=== PATIENT | male | born 1930 | race Caucasian/White ===

== ENCOUNTER 2019-01-04 09:56 | Emergency (ER) | payer OTHER ==
[2019-01-04 10:24] VITALS: BP 130/60; PULSE 68; TEMP 97.4; BMI 22.7
[2019-01-04 10:31] LABS: URINE APPEARANCE CLEAR; URINE BILIRUBIN NEGATIVE (<2.0 mg/dL); URINE COLOR COLORLESS; URINE GLUCOSE (UA) NEGATIVE (NEGATIVE); URINE KETONE NEGATIVE (NEGATIVE); URINE LEUK ESTERASE NEGATIVE (NEGATIVE); URINE NITRITE NEGATIVE (NEGATIVE); URINE PROTEIN NEGATIVE (NEGATIVE); URINE UROBILINOGEN NEGATIVE mg/dL (0.2-1.0)
--- NOTE | 2019-01-04 10:42 | PDOC ---
History of Present Illness - General Chief Complaint: Pain Stated Complaint: WEAKNESS, BACK PAIN Time Seen by Provider: 01/04/19 10:16 Past History - Past Medical History Allergies/Adverse Reactions: Allergies Allergy/AdvReac Type Severity Reaction Status Date / Time No Known Allergies Allergy Verified 01/04/19 10:17 Home Medications: Ambulatory Orders Amlodipine Besylate [Norvasc -] 10 mg PO DAILY 01/04/19 Carvedilol [Coreg -] 12.5 mg PO BID 01/04/19 Furosemide [Lasix] 40 mg PO DAILY 01/04/19 Lisinopril [Zestril] 40 mg PO BID 01/04/19 Metformin HCl 500 mg PO BID 01/04/19 Simvastatin [Zocor -] 20 mg PO HS 01/04/19 Terazosin HCl [Hytrin] 10 mg PO DAILY 01/04/19 COPD: No Diabetes: Yes HTN: Yes Hypercholesterolemia: Yes - Suicide/Smoking/Psychosocial Hx Smoking History: Unknown if ever smoked *Physical Exam - Vital Signs Last Vital Signs Temp Pulse Resp BP Pulse Ox 97.4 F L 68 18 130/60 01/04/19 10:11 01/04/19 10:11 01/04/19 10:11 01/04/19 10:11 Moderate Sedation - Procedure Monitoring Vital Signs: Procedure Monitoring Vital Signs Temperature 97.4 F L 01/04/19 10:11 Pulse Rate 68 01/04/19 10:11 Respiratory Rate 18 01/04/19 10:11 Blood Pressure 130/60 01/04/19 10:11 O2 Sat by Pulse Oximetry (%) ED Treatment Course - ADDITIONAL ORDERS Additional order review: Laboratory Results 01/04/19 10:15 Urine Color Colorless Urine Appearance Clear Urine pH 7.0 Ur Specific [place] 1.003 L Urine Protein Negative Urine Glucose (UA) Negative Urine Ketones Negative Urine Blood Negative Urine Nitrite Negative Urine Bilirubin Negative Urine Urobilinogen Negative Ur Leukocyte Esterase Negative *DC/Admit/Observation/Transfer 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 The xrays did not show any fractures or dislocations, but does show arthritis in your elbow. This is likely part of your pain. You should rest the extremity. Continue taking over the counter Tylenol as needed for pain. You can also try using cold and hot packs. I have referred you to an orthopedist, Dr. Anthony for further evaluation. You will need to call to make an appointment. The number is included in this packet. You can also follow up with your primary care doctor. Go to the nearest emergency department if your condition worsens or you feel like you need additional emergency evaluation. Print Language: [id number] - Post Discharge Activity
--- NOTE | 2019-01-04 11:14 | PDOC ---
Attending Attestation - Resident Resident Name: Jarred Acevedo - ED Attending Attestation I have performed the following: I have examined & evaluated the patient, The case was reviewed & discussed with the resident, I agree w/resident's findings & plan - HPI HPI: 01/04/19 13:58 The patient is a 88 year old male with a significant past medical history of hypertension, hyperlipidemia, and diabetes, who presents to the emergency department with right shoulder and elbow pain, worse with movement and associated with some tingling/numbness to pinky side x 4-5 days. endorses heavy lifting of stuff he should not be doing such as heavy bed.no falls or trauma. no weakness. no skin changes no f/c or infectious sx. - Physicial Exam PE: 01/04/19 13:59 General: NAD, well appearing Vascular: 2+ DP pulses symmetric and equal. Back: no midline tenderness, no stepoffs, FROM Focused MSK/Neuro Exam notable for soft compartments, shoulder abduction/ adduction/flexion/extension and prox strength 5/5 actively against resistance. 5 /5 shoulder shrug strength. deltoid sensation intact; sensation grossly intact in median/radial/ulnar distribution. 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 2+ radialis pulses bilaterally and symmetric. no tenderness to right shoulder, ROM in right elbow intact, no palp swelling or crepitus or warmth/skin changes Skin: color normal color, warm and well perfused. 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 given analgesia here, much improved. ROM remains intact, NVI results d/w pt and family. stable for DC with PCP and ortho followup, pain control otc, preferably tylenol. no c/i to nsaids, can be used as needed for exacerbation of arthritis. ROM exercises encouraged.
[2019-01-04] MEDS ORDERED: ACETAMINOPHEN 1000 MG/100 ML VIAL (NON FORMULARY) IVPB ONE (11:16)
[2019-01-04] MEDS ORDERED: KETOROLAC TROMETHAMINE 30 MG/1 ML VIAL IM ONE (11:17)
[2019-01-04] MEDS ORDERED: ACETAMINOPHEN INJECTION 100 ML IVPB ONE (11:23)
[2019-01-04] MEDS ORDERED: KETOROLAC TROMETHAMINE 30 MG/1 ML VIAL ONE (11:24)
== END 2019-01-04 13:29 | disposition home or self-care (01) ==
LOC: JER 09:56
PROC: 3E0233Z Introduction of Anti-inflammatory into Muscle, Percutaneous Approach (ICD-10-PCS; principal; 2019-01-04)
PROC: 3E033NZ Introduction of Analgesics, Hypnotics, Sedatives into Peripheral Vein, Percutaneous Approach (ICD-10-PCS; 2019-01-04)
DX: M13.821 Other specified arthritis, right elbow (principal); I10 Essential (primary) hypertension; E78.00 Pure hypercholesterolemia, unspecified; E11.9 Type 2 diabetes mellitus without complications; Z79.84 Long term (current) use of oral hypoglycemic drugs
CPT/HCPCS: 73030-TC-RT-FY; 73070-TC-RT-FY; 81003; 82962; 99282-25; J0131

== ENCOUNTER 2020-11-27 13:48 | Inpatient (IN) | payer OTHER ==
[2020-11-27 14:41] VITALS: BMI 19.9
[2020-11-27] MEDS ORDERED: ACETAMINOPHEN 1000 MG/100 ML VIAL (NON FORMULARY) IVPB ONE (15:39)
[2020-11-27 15:43] LABS: BASO % 0.2 % (0-2.0); EOS % 0.5 % (0-4.5); HEMATOCRIT 37.3 % (35.4-49); HEMOGLOBIN 12.5 GM/dL (11.7-16.9); MCH 28.9 pg (25.7-33.7); MCHC 33.3 g/dl (32.0-35.9); MEAN CELL VOLUME 86.6 fl (80-96); MEAN PLT VOLUME 7.9 fl (7.5-11.1); MONO % 8.5 % (3.8-10.2); NEUT % 84.8 % (42.8-82.8); PLATELET COUNT 247 K/MM3 (134-434); RBC 4.31 M/mm3 (4.00-5.60); RDW 14.4 % (11.9-15.9); WHITE BLOOD COUNT 8.3 K/mm3 (4.0-10.0)
[2020-11-27] MEDS ORDERED: morphine CARPU-JECT 2 MG/1 ML DISP.SYRIN IVPUSH ONE (15:54)
[2020-11-27 16:01] LABS: CHLORIDE 102 mmol/L (98-107); POTASSIUM 3.9 mmol/L (3.5-5.1); SODIUM 141 mmol/L (136-145)
[2020-11-27 16:03] LABS: CALCIUM 8.5 mg/dL (8.5-10.1)
[2020-11-27 16:04] LABS: ALBUMIN 3.2 g/dl (3.4-5.0); ANION GAP 8 MMOL/L (8-16); BLOOD UREA NITROGEN 17.4 mg/dL (7-18); CO2 32 mmol/L (21-32); GLUCOSE,RANDOM 168 mg/dL (74-106)
[2020-11-27 16:07] LABS: CREATININE 0.9 mg/dL (0.55-1.3); SGOT/AST 40 U/L (15-37); SGPT/ALT 90 U/L (13-61)
[2020-11-27 16:08] LABS: BILIRUBIN,TOTAL 1.3 mg/dL (0.2-1)
[2020-11-27 16:09] LABS: TOT PROT 6.5 g/dl (6.4-8.2)
[2020-11-27 16:10] LABS: ALK PHOS 190 U/L (45-117)
[2020-11-27] MEDS ORDERED: MORPHINE SULFATE 2 MG/ML VIAL ONE (16:43)
[2020-11-27] MEDS ORDERED: ACETAMINOPHEN INJECTION 100 ML IVPB ONE (16:43)
[2020-11-27 21:20] LABS: INR 1.56 (0.83-1.09); PROTHROMBIN TIME (PATIENT) 18.6 SEC (9.7-13.0)
[2020-11-27 21:22] LABS: ACTIVATED PTT 45.3 SECONDS (25.2-36.5)
[2020-11-27] MEDS ORDERED: morphine SULFATE 4 MG/ML VIAL IVPUSH PRN (23:52)
[2020-11-27] MEDS ORDERED: MORPHINE SULFATE 2 MG/ML VIAL IVPUSH PRN (23:52)
[2020-11-28] MEDS: INSULIN SLIDING SCALE (NOVOLOG) 1 VIAL SQ SCH ×3 (06:38→17:13)
[2020-11-28 07:19] LABS: BASO % 0.4 % (0-2.0); EOS % 0.8 % (0-4.5); HEMATOCRIT 36.8 % (35.4-49); HEMOGLOBIN 12.4 GM/dL (11.7-16.9); MCH 29.1 pg (25.7-33.7); MCHC 33.7 g/dl (32.0-35.9); MEAN CELL VOLUME 86.2 fl (80-96); MEAN PLT VOLUME 7.9 fl (7.5-11.1); MONO % 6.1 % (3.8-10.2); NEUT % 86.7 % (42.8-82.8); PLATELET COUNT 239 K/MM3 (134-434); RBC 4.27 M/mm3 (4.00-5.60); RDW 14.2 % (11.9-15.9); WHITE BLOOD COUNT 8.6 K/mm3 (4.0-10.0)
[2020-11-28 07:28] LABS: INR 1.51 (0.83-1.09)
[2020-11-28 07:43] LABS: POTASSIUM 3.5 mmol/L (3.5-5.1)
[2020-11-28 07:49] LABS: CALCIUM 8.1 mg/dL (8.5-10.1)
[2020-11-28 07:50] LABS: BLOOD UREA NITROGEN 17.3 mg/dL (7-18); MAGNESIUM 1.7 mg/dL (1.8-2.4)
[2020-11-28 07:53] LABS: CREATININE 0.8 mg/dL (0.55-1.3); PHOSPHOROUS 3.4 mg/dL (2.5-4.9)
[2020-11-28 07:54] LABS: BILIRUBIN,TOTAL 1.5 mg/dL (0.2-1)
[2020-11-28 07:55] LABS: TOT PROT 6.1 g/dl (6.4-8.2)
[2020-11-28] MEDS ORDERED: ENOXAPARIN NA (PORCINE) 40 MG/0.4 ML DISP.SYRIN SQ SCH (10:00)
[2020-11-28] MEDS ORDERED: PATIENT'S OWN MEDICATION (NON-FORMULARY) (Lisinopril [Zestril] 40 MG Tablet) PO SCH (10:00)
[2020-11-28] MEDS ORDERED: CARVEDILOL 12.5 MG TABLET (FP) ONE (10:26)
[2020-11-28] MEDS: CARVEDILOL 12.5 MG TABLET (FP) PO SCH ×2 (10:26→23:02)
[2020-11-28] MEDS ORDERED: DEXMEDETOMIDINE HCL 200 MCG/2 ML IVPB ONE (16:45)
[2020-11-28] MEDS ORDERED: ceFAZolin SODIUM 1 GM VIAL ONE (16:52)
[2020-11-28] MEDS ORDERED: PROPOFOL 20 ML ONE (16:52)
[2020-11-28] MEDS ORDERED: SUCCINYLCHOLINE CHLORIDE 200 MG/10 ML SYRINGE ONE (16:56)
[2020-11-28] MEDS ORDERED: EPHEDRINE SULFATE/0.9% NACL/PF 50 MG/10 ML SYRINGE NR ONE (16:56)
[2020-11-28] MEDS ORDERED: ROCURONIUM BROMIDE 100 MG/10 ML VIAL ONE ×2 (16:57→20:04)
[2020-11-28] MEDS ORDERED: MIDAZOLAM HCL 2 MG/2 ML SINGLE DOSE VIAL ONE (16:58)
[2020-11-28] MEDS ORDERED: ceFAZolin SODIUM 1 GM VIAL IVPB ONE (19:20)
[2020-11-28] MEDS ORDERED: KETAMINE HCL 200 MG/20 ML VIAL ONE (19:34)
[2020-11-28] MEDS ORDERED: HYDROmorphone HCl 2 MG/ML VIAL ONE (19:34)
[2020-11-28] MEDS ORDERED: NEOSTIGMINE METHYLSULFATE 0.5 MG/ML - 10 ML MDV ONE (20:17)
[2020-11-28] MEDS ORDERED: GLYCOPYRROLATE 0.2 MG/1 ML VIAL ONE (20:17)
[2020-11-28] MEDS ORDERED: VANCOMYCIN 1,000 MG VIAL (RESTRICTED TO ID ONLY) ONE (20:28)
[2020-11-28] MEDS ORDERED: LACTATED RINGERS SOLUTION 1,000 ML IV SCH (21:30)
[2020-11-28] MEDS ORDERED: ONDANSETRON 4 MG/2 ML VIAL IVPUSH PRN (21:33)
[2020-11-28 22:18] LABS: BASO % 0.1 % (0-2.0); EOS % 0.5 % (0-4.5); HEMATOCRIT 34.3 % (35.4-49); HEMOGLOBIN 11.5 GM/dL (11.7-16.9); LYMPH % 4.6 % (8-40); MCH 28.9 pg (25.7-33.7); MCHC 33.6 g/dl (32.0-35.9); MEAN PLT VOLUME 7.9 fl (7.5-11.1); MONO % 4.1 % (3.8-10.2); NEUT % 90.7 % (42.8-82.8); PLATELET COUNT 246 K/MM3 (134-434); RBC 3.99 M/mm3 (4.00-5.60); RDW 14.2 % (11.9-15.9); WHITE BLOOD COUNT 8.8 K/mm3 (4.0-10.0)
[2020-11-28] MEDS: TERAZOSIN HCL 5 MG CAPSULE PO SCH (23:02)
[2020-11-28] MEDS: ATORVASTATIN CA 10 MG TABLET (FP) PO SCH (23:02)
[2020-11-29] MEDS: CEFAZOLIN 2 GM/D5W 2 GM/50 ML ML IVPB SCH ×3 (02:02→17:18)
[2020-11-29] MEDS ORDERED: LACTATED RINGERS SOLUTION 1,000 ML IV SCH (06:01)
[2020-11-29] MEDS: INSULIN SLIDING SCALE (NOVOLOG) 1 VIAL SQ SCH ×3 (06:49→16:54)
[2020-11-29 09:28] LABS: POTASSIUM 4.1 mmol/L (3.5-5.1)
[2020-11-29 09:30] LABS: BASO % 0.1 % (0-2.0); EOS % 0.1 % (0-4.5); HEMATOCRIT 34.3 % (35.4-49); HEMOGLOBIN 11.5 GM/dL (11.7-16.9); MCHC 33.6 g/dl (32.0-35.9); MEAN CELL VOLUME 86.3 fl (80-96); MEAN PLT VOLUME 8.1 fl (7.5-11.1); MONO % 6.8 % (3.8-10.2); PLATELET COUNT 254 K/MM3 (134-434); RBC 3.98 M/mm3 (4.00-5.60); WHITE BLOOD COUNT 9.4 K/mm3 (4.0-10.0)
[2020-11-29 09:34] LABS: ALBUMIN 2.5 g/dl (3.4-5.0); CALCIUM 8.2 mg/dL (8.5-10.1)
[2020-11-29 09:38] LABS: BILIRUBIN,TOTAL 0.9 mg/dL (0.2-1); TOT PROT 5.4 g/dl (6.4-8.2)
[2020-11-29] MEDS: MULTIVITAMINS (DAILY MVI) TABLET (FP) PO SCH (09:46)
[2020-11-29] MEDS: ENOXAPARIN NA (PORCINE) 40 MG/0.4 ML DISP.SYRIN SQ SCH (09:46)
[2020-11-29] MEDS: CARVEDILOL 12.5 MG TABLET (FP) PO SCH ×2 (09:46→22:06)
[2020-11-29] MEDS ORDERED: INSULIN (NOVOLOG) ASPART 100 UNITS/ML 10ML VIAL ONE (11:33)
[2020-11-29] MEDS ORDERED: TAMSULOSIN HCL 0.4 MG CAP PO ONE ×2 (12:20→17:30)
[2020-11-29] MEDS ORDERED: PT OWN MED DRAWER 7, Y5N ONE (21:57)
[2020-11-29] MEDS: ATORVASTATIN CA 10 MG TABLET (FP) PO SCH (22:06)
[2020-11-29] MEDS: TERAZOSIN HCL 5 MG CAPSULE PO SCH (22:06)
[2020-11-30] MEDS ORDERED: MELATONIN 5 MG TABLETS PO ONE (00:28)
[2020-11-30] MEDS: INSULIN SLIDING SCALE (NOVOLOG) 1 VIAL SQ SCH ×3 (06:44→16:40)
[2020-11-30 08:41] LABS: HEMATOCRIT 30.6 % (35.4-49); HEMOGLOBIN 10.2 GM/dL (11.7-16.9); MCH 28.8 pg (25.7-33.7); MCHC 33.4 g/dl (32.0-35.9); MEAN CELL VOLUME 86.2 fl (80-96); MEAN PLT VOLUME 8.3 fl (7.5-11.1); PLATELET COUNT 235 K/MM3 (134-434); RBC 3.56 M/mm3 (4.00-5.60); RDW 14.4 % (11.9-15.9); WHITE BLOOD COUNT 7.6 K/mm3 (4.0-10.0)
[2020-11-30 09:01] LABS: POTASSIUM 3.7 mmol/L (3.5-5.1)
[2020-11-30 09:05] LABS: CALCIUM 7.9 mg/dL (8.5-10.1)
[2020-11-30 09:06] LABS: BLOOD UREA NITROGEN 32.3 mg/dL (7-18)
[2020-11-30 09:09] LABS: CREATININE 1.1 mg/dL (0.55-1.3)
[2020-11-30] MEDS: ENOXAPARIN NA (PORCINE) 40 MG/0.4 ML DISP.SYRIN SQ SCH (09:40)
[2020-11-30] MEDS: MULTIVITAMINS (DAILY MVI) TABLET (FP) PO SCH (09:40)
[2020-11-30] MEDS: CARVEDILOL 12.5 MG TABLET (FP) PO SCH ×2 (09:40→22:15)
[2020-11-30] MEDS ORDERED: INSULIN (NOVOLOG) ASPART 100 UNITS/ML 10ML VIAL ONE (11:56)
[2020-11-30] MEDS ORDERED: PT OWN MED DRAWER 7, Y5N ONE (22:14)
[2020-11-30] MEDS: TERAZOSIN HCL 5 MG CAPSULE PO SCH (22:15)
[2020-11-30] MEDS: ATORVASTATIN CA 10 MG TABLET (FP) PO SCH (22:15)
[2020-12-01] MEDS ORDERED: INSULIN (NOVOLOG) ASPART 100 UNITS/ML 10ML VIAL ONE (07:03)
[2020-12-01] MEDS: INSULIN SLIDING SCALE (NOVOLOG) 1 VIAL SQ SCH ×3 (07:15→19:42)
[2020-12-01 09:19] LABS: HEMATOCRIT 29.9 % (35.4-49); HEMOGLOBIN 10.1 GM/dL (11.7-16.9); MCH 29.2 pg (25.7-33.7); MCHC 33.8 g/dl (32.0-35.9); MEAN CELL VOLUME 86.4 fl (80-96); MEAN PLT VOLUME 8.1 fl (7.5-11.1); PLATELET COUNT 223 K/MM3 (134-434); RBC 3.46 M/mm3 (4.00-5.60); RDW 14.3 % (11.9-15.9); WHITE BLOOD COUNT 6.1 K/mm3 (4.0-10.0)
[2020-12-01 09:45] LABS: POTASSIUM 3.9 mmol/L (3.5-5.1)
[2020-12-01 10:03] LABS: CALCIUM 7.7 mg/dL (8.5-10.1)
[2020-12-01 10:04] LABS: BLOOD UREA NITROGEN 24.1 mg/dL (7-18)
[2020-12-01 10:07] LABS: CREATININE 0.8 mg/dL (0.55-1.3)
[2020-12-01] MEDS ORDERED: PT OWN MED DRAWER 7, Y5N ONE ×2 (11:13→22:13)
[2020-12-01] MEDS: DOCUSATE SODIUM 100 MG CAPSULE (FP) PO ONE (11:25)
[2020-12-01] MEDS: POLYETHYLENE GLYCOL 3350 119 GM BTL PO ONE (11:25)
[2020-12-01] MEDS: CARVEDILOL 12.5 MG TABLET (FP) PO SCH ×3 (11:26→22:15)
[2020-12-01] MEDS: ENOXAPARIN NA (PORCINE) 40 MG/0.4 ML DISP.SYRIN SQ SCH ×3 (11:26→16:01)
[2020-12-01] MEDS: MULTIVITAMINS (DAILY MVI) TABLET (FP) PO SCH ×2 (11:27→12:38)
[2020-12-01 20:52] LABS: EPI CELLS 17 /uL (0-25.1); HYALINE CASTS 31 /uL (0-3.1); PH,URINE 5.5 (5.0-8.0); URINE APPEARANCE TURBID; URINE BILIRUBIN NEGATIVE (NEGATIVE); URINE COLOR DK YELLOW; URINE GLUCOSE (UA) NEGATIVE (NEGATIVE); URINE KETONE NEGATIVE (NEGATIVE); URINE LEUK ESTERASE 2+ (NEGATIVE); URINE NITRITE POSITIVE (NEGATIVE); URINE PROTEIN 1+ (NEGATIVE); URINE RBC 58 /uL (0-23.9); URINE WBC 8 /uL (0-25.8)
[2020-12-01] MEDS: ATORVASTATIN CA 10 MG TABLET (FP) PO SCH (22:15)
[2020-12-01] MEDS: TERAZOSIN HCL 5 MG CAPSULE PO SCH (22:16)
[2020-12-01 22:23] LABS: URINE BACTERIA 170.1 /uL (0-1359)
[2020-12-02] MEDS: INSULIN SLIDING SCALE (NOVOLOG) 1 VIAL SQ SCH ×3 (06:35→17:05)
[2020-12-02 09:12] LABS: HEMATOCRIT 31.3 % (35.4-49); HEMOGLOBIN 10.6 GM/dL (11.7-16.9); MCH 29.3 pg (25.7-33.7); MCHC 33.8 g/dl (32.0-35.9); MEAN CELL VOLUME 86.6 fl (80-96); MEAN PLT VOLUME 8.2 fl (7.5-11.1); PLATELET COUNT 237 K/MM3 (134-434); RBC 3.62 M/mm3 (4.00-5.60); RDW 14.2 % (11.9-15.9); WHITE BLOOD COUNT 6.3 K/mm3 (4.0-10.0)
[2020-12-02] MEDS: ENOXAPARIN NA (PORCINE) 40 MG/0.4 ML DISP.SYRIN SQ SCH (09:37)
[2020-12-02] MEDS: MULTIVITAMINS (DAILY MVI) TABLET (FP) PO SCH (09:37)
[2020-12-02] MEDS: CARVEDILOL 12.5 MG TABLET (FP) PO SCH ×2 (09:37→22:34)
[2020-12-02 10:07] LABS: CALCIUM 8.2 mg/dL (8.5-10.1)
[2020-12-02 10:08] LABS: BLOOD UREA NITROGEN 19.6 mg/dL (7-18); MAGNESIUM 2.3 mg/dL (1.8-2.4)
[2020-12-02 10:11] LABS: CREATININE 0.7 mg/dL (0.55-1.3); PHOSPHOROUS 2.9 mg/dL (2.5-4.9)
[2020-12-02] MEDS: ACETAMINOPHEN 325 MG TABLET (FP) PO PRN ×2 (15:20→22:51)
[2020-12-02] MEDS: POLYETHYLENE GLYCOL 3350 119 GM BTL PO ONE (20:00)
[2020-12-02] MEDS: DOCUSATE SODIUM 100 MG CAPSULE (FP) PO ONE (20:00)
[2020-12-02] MEDS: TERAZOSIN HCL 5 MG CAPSULE PO SCH (22:51)
[2020-12-02] MEDS: ATORVASTATIN CA 10 MG TABLET (FP) PO SCH (22:51)
[2020-12-03] MEDS: INSULIN SLIDING SCALE (NOVOLOG) 1 VIAL SQ SCH ×3 (07:10→17:09)
[2020-12-03 08:42] LABS: HEMATOCRIT 32.8 % (35.4-49); HEMOGLOBIN 10.9 GM/dL (11.7-16.9); MCH 29.3 pg (25.7-33.7); MCHC 33.4 g/dl (32.0-35.9); MEAN CELL VOLUME 87.9 fl (80-96); MEAN PLT VOLUME 8.1 fl (7.5-11.1); PLATELET COUNT 258 K/MM3 (134-434); RBC 3.74 M/mm3 (4.00-5.60); RDW 14.1 % (11.9-15.9); WHITE BLOOD COUNT 6.1 K/mm3 (4.0-10.0)
[2020-12-03 09:07] LABS: POTASSIUM 3.9 mmol/L (3.5-5.1)
[2020-12-03 09:09] LABS: BLOOD UREA NITROGEN 18.7 mg/dL (7-18); MAGNESIUM 2.4 mg/dL (1.8-2.4)
[2020-12-03 09:12] LABS: CREATININE 0.7 mg/dL (0.55-1.3)
[2020-12-03] MEDS: CARVEDILOL 12.5 MG TABLET (FP) PO SCH ×2 (09:15→21:51)
[2020-12-03] MEDS: MULTIVITAMINS (DAILY MVI) TABLET (FP) PO SCH (09:15)
[2020-12-03] MEDS: ENOXAPARIN NA (PORCINE) 40 MG/0.4 ML DISP.SYRIN SQ SCH (09:15)
[2020-12-03] MEDS: CEFTRIAXONE 1 GM in DEXTROSE 5%-WATER - 50 ML IVPB SCH (17:17)
[2020-12-03] MEDS: ATORVASTATIN CA 10 MG TABLET (FP) PO SCH (21:51)
[2020-12-03] MEDS: TERAZOSIN HCL 5 MG CAPSULE PO SCH (21:51)
[2020-12-04] MEDS: INSULIN SLIDING SCALE (NOVOLOG) 1 VIAL SQ SCH ×3 (06:01→17:24)
[2020-12-04 07:49] LABS: HEMATOCRIT 29.2 % (35.4-49); MCH 29.4 pg (25.7-33.7); MCHC 34.2 g/dl (32.0-35.9); MEAN PLT VOLUME 8.1 fl (7.5-11.1); PLATELET COUNT 279 K/MM3 (134-434); RDW 14.3 % (11.9-15.9); WHITE BLOOD COUNT 7.1 K/mm3 (4.0-10.0)
[2020-12-04 08:14] LABS: POTASSIUM 4.2 mmol/L (3.5-5.1)
[2020-12-04 08:15] LABS: CALCIUM 7.9 mg/dL (8.5-10.1)
[2020-12-04 08:16] LABS: BLOOD UREA NITROGEN 20.4 mg/dL (7-18); MAGNESIUM 2.2 mg/dL (1.8-2.4)
[2020-12-04 08:18] LABS: CREATININE 0.8 mg/dL (0.55-1.3); PHOSPHOROUS 2.9 mg/dL (2.5-4.9)
[2020-12-04] MEDS: MULTIVITAMINS (DAILY MVI) TABLET (FP) PO SCH (11:01)
[2020-12-04] MEDS: ENOXAPARIN NA (PORCINE) 40 MG/0.4 ML DISP.SYRIN SQ SCH (11:02)
[2020-12-04] MEDS: CEFTRIAXONE 1 GM in DEXTROSE 5%-WATER - 50 ML IVPB SCH (11:02)
[2020-12-04] MEDS: CARVEDILOL 12.5 MG TABLET (FP) PO SCH ×2 (11:04→22:19)
[2020-12-04 17:33] LABS: URINE APPEARANCE CLEAR; URINE BILIRUBIN NEGATIVE (NEGATIVE); URINE COLOR DK YELLOW; URINE GLUCOSE (UA) NEGATIVE (NEGATIVE); URINE KETONE NEGATIVE (NEGATIVE); URINE LEUK ESTERASE NEGATIVE (NEGATIVE); URINE NITRITE NEGATIVE (NEGATIVE); URINE PROTEIN NEGATIVE (NEGATIVE)
[2020-12-04] MEDS: TERAZOSIN HCL 5 MG CAPSULE PO SCH (22:17)
[2020-12-04] MEDS: ATORVASTATIN CA 10 MG TABLET (FP) PO SCH (22:19)
[2020-12-05] MEDS: INSULIN SLIDING SCALE (NOVOLOG) 1 VIAL SQ SCH ×3 (06:44→17:08)
[2020-12-05 08:32] LABS: HEMATOCRIT 29.6 % (35.4-49); MCH 29.2 pg (25.7-33.7); MCHC 33.9 g/dl (32.0-35.9); MEAN CELL VOLUME 86.2 fl (80-96); MEAN PLT VOLUME 8.1 fl (7.5-11.1); PLATELET COUNT 277 K/MM3 (134-434); RBC 3.43 M/mm3 (4.00-5.60); RDW 14.2 % (11.9-15.9); WHITE BLOOD COUNT 6.3 K/mm3 (4.0-10.0)
[2020-12-05 08:52] LABS: POTASSIUM 4.7 mmol/L (3.5-5.1)
[2020-12-05 09:11] LABS: BLOOD UREA NITROGEN 17.3 mg/dL (7-18)
[2020-12-05 09:13] LABS: MAGNESIUM 2.1 mg/dL (1.8-2.4)
[2020-12-05 09:17] LABS: CREATININE 0.7 mg/dL (0.55-1.3); PHOSPHOROUS 3.2 mg/dL (2.5-4.9)
[2020-12-05] MEDS: CEFTRIAXONE 1 GM in DEXTROSE 5%-WATER - 50 ML IVPB SCH (09:37)
[2020-12-05] MEDS: ENOXAPARIN NA (PORCINE) 40 MG/0.4 ML DISP.SYRIN SQ SCH (09:38)
[2020-12-05] MEDS: MULTIVITAMINS (DAILY MVI) TABLET (FP) PO SCH (09:38)
[2020-12-05] MEDS: CARVEDILOL 12.5 MG TABLET (FP) PO SCH ×2 (09:38→21:19)
[2020-12-05] MEDS: TERAZOSIN HCL 5 MG CAPSULE PO SCH (21:22)
[2020-12-05] MEDS: ATORVASTATIN CA 10 MG TABLET (FP) PO SCH (21:22)
[2020-12-05] MEDS: ACETAMINOPHEN 325 MG TABLET (FP) PO PRN (21:23)
[2020-12-06] MEDS: INSULIN SLIDING SCALE (NOVOLOG) 1 VIAL SQ SCH ×3 (06:51→17:52)
[2020-12-06 09:25] LABS: HEMATOCRIT 32.4 % (35.4-49); HEMOGLOBIN 10.5 GM/dL (11.7-16.9); MCH 28.2 pg (25.7-33.7); MCHC 32.3 g/dl (32.0-35.9); MEAN CELL VOLUME 87.5 fl (80-96); MEAN PLT VOLUME 8.7 fl (7.5-11.1); PLATELET COUNT 261 K/MM3 (134-434); RBC 3.71 M/mm3 (4.00-5.60); RDW 14.6 % (11.9-15.9)
[2020-12-06 09:52] LABS: POTASSIUM 4.9 mmol/L (3.5-5.1)
[2020-12-06 09:55] LABS: BLOOD UREA NITROGEN 15.3 mg/dL (7-18); CALCIUM 8.1 mg/dL (8.5-10.1); MAGNESIUM 2.2 mg/dL (1.8-2.4)
[2020-12-06 09:58] LABS: CREATININE 0.7 mg/dL (0.55-1.3); PHOSPHOROUS 3.4 mg/dL (2.5-4.9)
[2020-12-06] MEDS: CEFTRIAXONE 1 GM in DEXTROSE 5%-WATER - 50 ML IVPB SCH (10:57)
[2020-12-06] MEDS: MULTIVITAMINS (DAILY MVI) TABLET (FP) PO SCH (11:19)
[2020-12-06] MEDS: CARVEDILOL 12.5 MG TABLET (FP) PO SCH ×2 (11:20→21:07)
[2020-12-06] MEDS: ENOXAPARIN NA (PORCINE) 40 MG/0.4 ML DISP.SYRIN SQ SCH (13:04)
[2020-12-06] MEDS ORDERED: MELATONIN 5 MG TABLETS PO ONE (20:37)
[2020-12-06] MEDS: ACETAMINOPHEN 325 MG TABLET (FP) PO PRN (21:07)
[2020-12-06] MEDS: ATORVASTATIN CA 10 MG TABLET (FP) PO SCH (21:07)
[2020-12-06] MEDS: TERAZOSIN HCL 5 MG CAPSULE PO SCH (21:07)
[2020-12-07] MEDS: INSULIN SLIDING SCALE (NOVOLOG) 1 VIAL SQ SCH ×3 (07:29→16:37)
[2020-12-07] MEDS: ENOXAPARIN NA (PORCINE) 40 MG/0.4 ML DISP.SYRIN SQ SCH (12:13)
[2020-12-07] MEDS: CARVEDILOL 12.5 MG TABLET (FP) PO SCH (12:14)
[2020-12-07] MEDS: CEFTRIAXONE 1 GM in DEXTROSE 5%-WATER - 50 ML IVPB SCH (12:14)
[2020-12-07] MEDS: MULTIVITAMINS (DAILY MVI) TABLET (FP) PO SCH (12:15)
[2020-12-07 20:25] VITALS: BP 140/77; PULSE 71; TEMP 98.3
== END 2020-12-07 20:25 | DRG 522 ==
LOC: JER 13:48 → JERBED 19:45 → J6S 11-28 23:00 → J6WEST-2 12-02 10:57
PROVIDERS: ADMIT Internal Medicine; ATTEND Internal Medicine
PROC: 0SRR0JA Replacement of Right Hip Joint, Femoral Surface with Synthetic Substitute, Uncemented, Open Approach (ICD-10-PCS; principal; 2020-11-28 16:00)
PROC: 0CJS8ZZ Inspection of Larynx, Via Natural or Artificial Opening Endoscopic (ICD-10-PCS; 2020-12-05)
DX: S72.001A Fracture of unspecified part of neck of right femur, initial encounter for closed fracture (principal); Z68.1 Body mass index [BMI] 19.9 or less, adult; N39.0 Urinary tract infection, site not specified; I50.32 Chronic diastolic (congestive) heart failure; E78.5 Hyperlipidemia, unspecified; E11.9 Type 2 diabetes mellitus without complications; R63.4 Abnormal weight loss; I11.0 Hypertensive heart disease with heart failure; R13.13 Dysphagia, pharyngeal phase; N28.1 Cyst of kidney, acquired; N40.0 Benign prostatic hyperplasia without lower urinary tract symptoms; W07.XXXA Fall from chair, initial encounter; Y92.098 Other place in other non-institutional residence as the place of occurrence of the external cause; Z95.0 Presence of cardiac pacemaker
CPT/HCPCS: 36415; 70450-TC; 70490-TC; 71045-TC-FY; 72170-TC-FY; 73030-TC-RT-FY; 73070-TC-RT-FY; 73523-TC-FY; 73552-TC-RT-FY; 73562-TC-RT-FY; 74230-TC-FY; 76775-TC; 76856-TC; 80048; 80053; 81003; 82550; 82962; 83735; 84100; 84443; 84484; 85025; 85027; 85610; 85730; 86850; 86900; 86901; 86922; 87086; 88305-TC; 88311-TC; 92611-GN; 93005; 93010; 93306-TC; 94760; 97116-GP; 97162-GP; 99285-25; C9803; J0131; U0003